=== PATIENT | male | born 1990 | race Caucasian/White ===

== ENCOUNTER 2017-02-20 09:14 | Emergency (ER) | payer OTHER ==
[~2017-02-20] VITALS: Ht 170.2 cm; Wt 78.0 kg
[2017-02-20 09:33] VITALS: Ht 170.2 cm; Wt 78.0 kg
[2017-02-20] MEDS ORDERED: D-ME473S18 PO (10:52)
[2017-02-20] MEDS ORDERED: NAPR-260 PO (10:52)
--- NOTE | 2017-02-20 11:33 | ERD ---
ER Documentation Chief Complaint Date/Time DATE: 02/20/17 TIME: 11:31 Chief Complaint sore throat x 3 days; cough HPI 26-year-old male coming in complaining of sore throat, nasal congestion, headache and dry cough 4 days. Patient has taken Zicam and Sudafed with no alleviation's. Denies sick contacts. Denies fever. Denies chest pain or shortness of breath. ROS All systems reviewed and are negative except as per history of present illness. Medications Home Meds Active Scripts Naproxen* (Naprosyn*) 500 Mg Tablet, 500 MG PO BID Y for PAIN AND/OR INFLAMMATION, #30 TAB Prov:STONE MANCIA PA-C 02/20/17 Dextromethorphan Hb-Promethazine Hcl (Promethazine DM Syrup) 473 Ml Syrup, 5 ML PO Q6H Y for COUGH, #4 OZ Prov:STONE MANCIA PA-C 02/20/17 PMhx/Soc Medical and Surgical Hx: pt denies Medical Hx, pt denies Surgical Hx History of Surgery: No Anesthesia Reaction: No Hx Neurological Disorder: No Hx Respiratory Disorders: No Hx Cardiac Disorders: No Hx Psychiatric Problems: No Hx Miscellaneous Medical Probl: No Hx Alcohol Use: No Hx Substance Use: No Hx Tobacco Use: No Smoking Status: Never smoker Physical Exam Vitals Vital Signs Date Time Temp Pulse Resp B/P Pulse Ox O2 Delivery O2 Flow Rate FiO2 02/20/17 09:33 98.5 88 16 121/85 98 Physical Exam GENERAL: The patient is well-appearing, well-nourished, in no acute distress HEENT: Atraumatic. Conjunctivae are pink. Pupils equal, round, and reactive to light. There is no scleral icterus. Tympanic membranes clear bilaterally. Oropharynx clear. No nystagmus or photophobia. NECK: C-spine is soft and supple. There is no meningismus. There is no cervical lymphadenopathy. No JVD. No bruits. No goiter. CHEST: Clear to auscultation bilaterally. There are no rales, wheezes or rhonchi. HEART: Regular rate and rhythm. No murmurs, clicks, rubs or gallops. No S3 or S4. Procedures/MDM MDM: Patient's physical exam is within normal limits and vital signs are stable. I have low suspicion for bacterial HEENT infection. I have low suspicion for meningitis or sepsis. I have low suspicion for pneumonia. Patient's exam is not concerning and I do not feel that antibiotics are indicated. Patient likely has viral URI and will be treated with symptomatic medication. Patient is given strict ER precautions and recommended to follow- up with primary care within 1-2 days for close evaluation. All questions answered at the time of discharge. Departure Diagnosis: Primary Impression: Sore throat Condition: Stable Referrals: [facility] YOU HAVE RECEIVED A MEDICAL SCREENING EXAM AND THE RESULTS INDICATE THAT YOU DO NOT HAVE A CONDITION THAT REQUIRES URGENT TREATMENT IN THE EMERGENCY DEPARTMENT. FURTHER EVALUATION AND TREATMENT OF YOUR CONDITION CAN WAIT UNTIL YOU ARE SEEN IN YOUR DOCTORS OFFICE WITHIN THE NEXT 1-2 DAYS. IT IS YOUR RESPONSIBILITY TO MAKE AN APPOINTMENT FOR FOLOW-UP CARE. IF YOU HAVE A PRIMARY DOCTOR --you should call your primary doctor and schedule an appointment IF YOU DO NOT HAVE A PRIMARY DOCTOR YOU CAN CALL OUR PHYSICIAN REFERRAL HOTLINE AT IF YOU CAN NOT AFFORD TO SEE A PHYSICIAN YOU CAN CHOSE FROM THE FOLLOWING [facility] [address] [facility] [address] [facility] [address] [facility] [address] [facility] [address] [facility]. [facility]. [address] Additional Instructions: FOLLOW UP WITH YOUR PRIMARY CARE PHYSICIAN TOMORROW.Return to this facility if you are not improving as expected. STONE MANCIA PA-C Feb 20, 2017 11:33
== END 2017-02-20 11:23 | disposition home or self-care (01) ==
LOC: FTE 09:14
DX: J02.9 Acute pharyngitis, unspecified (principal)
CPT/HCPCS: 99283

== ENCOUNTER 2017-04-13 10:30 | Emergency (ER) | payer OTHER ==
[~2017-04-13] VITALS: Wt 77.0 kg
[~2017-04-13 10:30] MED LIST: D-ME473S18 PO; NAPR-260 PO
[2017-04-13] MEDS ORDERED: AZIT250T94 PO (11:54)
[2017-04-13] MEDS ORDERED: UDROBDM PO (11:55)
[2017-04-13] MEDS ORDERED: IBUP-1542 PO (11:57)
[2017-04-13] MEDS ORDERED: CETI10CA PO (11:57)
[2017-04-13] MEDS ORDERED: FLUT9.9S NASAL (11:57)
[2017-04-13 12:08] VITALS: RESP 18
--- NOTE | 2017-04-13 12:11 | ERD ---
ER Documentation Chief Complaint Chief Complaint SORE THROAT X 1 MONTH HPI This is a 26-year-old male presents the emergency department today of sore throat, cough, nasal congestion, runny nose and mucus. She was seen here approximately 1 month ago and whenever he was given was helpful to him. States he felt better for a little bit and symptoms returned approximately 1 week ago. ROS All systems reviewed and are negative except as per history of present illness. Medications Home Meds Active Scripts Ibuprofen* (Motrin*) 600 Mg Tab, 600 MG PO Q6, #30 TAB Prov:NAOMIE VILLEDA PA-C 04/13/17 Cetirizine Hcl* (Zyrtec*) 10 Mg Capsule, 10 MG PO DAILY, #14 TAB.CHEW Prov:NAOMIE VILLEDA PA-C 04/13/17 Fluticasone Propionate (Flonase Allergy Relief) 9.9 Ml [place].susp, 2 SPRAY NASAL DAILY, #1 BOTTLE TO EACH NOSTRIL Prov:NAOMIE VILLEDA PA-C 04/13/17 Guaifenesin-Dextromethorphan* (Robitussin* DM) 100MG/10MG/5ML Syrup, 10 ML PO Q6H for COUGH for 5 Days, ML Prov:NAOMIE VILLEDA PA-C 04/13/17 Azithromycin* (Zithromax*) 250 Mg Tablet, 250 MG PO .ZPACK DIRECTED, #6 TAB TAKE 500 MG (2 TABS) THE FIRST DAY THEN 250 MG (1 TAB) DAYS 2-5 Prov:NAOMIE VILLEDA PA-C 04/13/17 Naproxen* (Naprosyn*) 500 Mg Tablet, 500 MG PO BID Y for PAIN AND/OR INFLAMMATION, #30 TAB Prov:STONE MANCIA PA-C 02/20/17 Dextromethorphan Hb-Promethazine Hcl (Promethazine DM Syrup) 473 Ml Syrup, 5 ML PO Q6H Y for COUGH, #4 OZ Prov:STONE MANCIA PA-C 02/20/17 PMhx/Soc History of Surgery: No Anesthesia Reaction: No Hx Neurological Disorder: No Hx Respiratory Disorders: No Hx Cardiac Disorders: No Hx Psychiatric Problems: No Hx Miscellaneous Medical Probl: No Hx Alcohol Use: No Hx Substance Use: No Hx Tobacco Use: No Physical Exam Vitals Vital Signs Date Time Temp Pulse Resp B/P Pulse Ox O2 Delivery O2 Flow Rate FiO2 04/13/17 12:08 18 98 Room Air 04/13/17 10:32 98.0 77 18 134/90 99 Physical Exam Const: talkative, NAD Head: Atraumatic Eyes: Normal Conjunctiva ENT: Is normal. Nose no drainage. Throat with erythema no exudate no vesicles Neck: Full range of motion..~ No meningismus. Resp: Clear to auscultation bilaterally Cardio: Regular rate and rhythm, no murmurs Abd: Soft, non tender, non distended. Normal bowel sounds Skin: No petechiae or rashes Neur: Awake and alert Psych: Normal Mood and Affect Procedures/MDM This is a 26 -year-old male who presents the emergency department today complaining of signs and symptoms consistent with a URI versus influenza-like symptoms. Afebrile and otherwise well-appearing. Oxygen saturation is 99% I do not feel he requires a chest x-ray at this time. Patient was seen here on February 20, 2017 for similar symptoms. Patient did indicate he felt better for a short period of time but now his symptoms have returned. Was not given antibiotics at that time and was given Naprosyn and promethazine. Given patient 's have returned I will give the patient a prescription for azithromycin that would cover him for strep pharyngitis versus pneumonia versus bronchitis. He was also given a prescription for Robitussin, Flonase and Zyrtec and Motrin. I have low suspicion for , peritonsillar abscess, retropharyngeal abscess, otitis media, PNA, sinusitis, abscess, meningitis, sepsis, or other acute infectious bacterial process. At this time the patient is stable for discharge and outpatient management. They should follow up with their PCP in the next 1-2. He was given a list of community resources they may return to the emergency department sooner if symptoms persist or worsen. Patient understood and agreed with the plan. Departure Diagnosis: Primary Impression: URI (upper respiratory infection) URI type: unspecified URI Qualified Code: J06.9 - Upper respiratory tract infection, unspecified type Condition: Fair Patient Instructions: Self-Care for Sore Throats, Preventing Common Respiratory Infections Referrals: COMMUNITY CLINICS YOU HAVE RECEIVED A MEDICAL SCREENING EXAM AND THE RESULTS INDICATE THAT YOU DO NOT HAVE A CONDITION THAT REQUIRES URGENT TREATMENT IN THE EMERGENCY DEPARTMENT. FURTHER EVALUATION AND TREATMENT OF YOUR CONDITION CAN WAIT UNTIL YOU ARE SEEN IN YOUR DOCTORS OFFICE WITHIN THE NEXT 1-2 DAYS. IT IS YOUR RESPONSIBILITY TO MAKE AN APPOINTMENT FOR FOLOW-UP CARE. IF YOU HAVE A PRIMARY DOCTOR --you should call your primary doctor and schedule an appointment IF YOU DO NOT HAVE A PRIMARY DOCTOR YOU CAN CALL OUR PHYSICIAN REFERRAL HOTLINE AT IF YOU CAN NOT AFFORD TO SEE A PHYSICIAN YOU CAN CHOSE FROM THE FOLLOWING [facility] CLINICS [facility] [address] [facility]. [facility] [address] [facility] [address] [facility]. [facility] [address] [facility]. [facility] [address] [facility] [facility] [address] Additional Instructions: Call your primary care doctor TOMORROW for an appointment during the next 1-2 days.See the doctor sooner or return here if your condition worsens before your appointment time. Take Antibiotics as prescribed. Take Naprosyn or Tylenol or Motrin for pain. Stay well hydrated with plenty of clear fluids. Take Robitussin for cough. Take Flonase and Zyrtec for nasal congestion. NAOMIE VILLEDA PA-C Apr 13, 2017 12:11
--- NOTE | 2017-04-13 12:11 | ERD ---
ER Documentation Chief Complaint Chief Complaint SORE THROAT X 1 MONTH HPI This is a 26-year-old male presents the emergency department today of sore throat, cough, nasal congestion, runny nose and mucus. She was seen here approximately 1 month ago and whenever he was given was helpful to him. States he felt better for a little bit and symptoms returned approximately 1 week ago. ROS All systems reviewed and are negative except as per history of present illness. Medications Home Meds Active Scripts Ibuprofen* (Motrin*) 600 Mg Tab, 600 MG PO Q6, #30 TAB Prov:NAOMIE VILLEDA PA-C 04/13/17 Cetirizine Hcl* (Zyrtec*) 10 Mg Capsule, 10 MG PO DAILY, #14 TAB.CHEW Prov:NAOMIE VILLEDA PA-C 04/13/17 Fluticasone Propionate (Flonase Allergy Relief) 9.9 Ml [place].susp, 2 SPRAY NASAL DAILY, #1 BOTTLE TO EACH NOSTRIL Prov:NAOMIE VILLEDA PA-C 04/13/17 Guaifenesin-Dextromethorphan* (Robitussin* DM) 100MG/10MG/5ML Syrup, 10 ML PO Q6H for COUGH for 5 Days, ML Prov:NAOMIE VILLEDA PA-C 04/13/17 Azithromycin* (Zithromax*) 250 Mg Tablet, 250 MG PO .ZPACK DIRECTED, #6 TAB TAKE 500 MG (2 TABS) THE FIRST DAY THEN 250 MG (1 TAB) DAYS 2-5 Prov:NAOMIE VILLEDA PA-C 04/13/17 Naproxen* (Naprosyn*) 500 Mg Tablet, 500 MG PO BID Y for PAIN AND/OR INFLAMMATION, #30 TAB Prov:STONE MANCIA PA-C 02/20/17 Dextromethorphan Hb-Promethazine Hcl (Promethazine DM Syrup) 473 Ml Syrup, 5 ML PO Q6H Y for COUGH, #4 OZ Prov:STONE MANCIA PA-C 02/20/17 PMhx/Soc History of Surgery: No Anesthesia Reaction: No Hx Neurological Disorder: No Hx Respiratory Disorders: No Hx Cardiac Disorders: No Hx Psychiatric Problems: No Hx Miscellaneous Medical Probl: No Hx Alcohol Use: No Hx Substance Use: No Hx Tobacco Use: No Physical Exam Vitals Vital Signs Date Time Temp Pulse Resp B/P Pulse Ox O2 Delivery O2 Flow Rate FiO2 04/13/17 12:08 18 98 Room Air 04/13/17 10:32 98.0 77 18 134/90 99 Physical Exam Const: talkative, NAD Head: Atraumatic Eyes: Normal Conjunctiva ENT: Is normal. Nose no drainage. Throat with erythema no exudate no vesicles Neck: Full range of motion..~ No meningismus. Resp: Clear to auscultation bilaterally Cardio: Regular rate and rhythm, no murmurs Abd: Soft, non tender, non distended. Normal bowel sounds Skin: No petechiae or rashes Neur: Awake and alert Psych: Normal Mood and Affect Procedures/MDM This is a 26 -year-old male who presents the emergency department today complaining of signs and symptoms consistent with a URI versus influenza-like symptoms. Afebrile and otherwise well-appearing. Oxygen saturation is 99% I do not feel he requires a chest x-ray at this time. Patient was seen here on February 20, 2017 for similar symptoms. Patient did indicate he felt better for a short period of time but now his symptoms have returned. Was not given antibiotics at that time and was given Naprosyn and promethazine. Given patient 's have returned I will give the patient a prescription for azithromycin that would cover him for strep pharyngitis versus pneumonia versus bronchitis. He was also given a prescription for Robitussin, Flonase and Zyrtec and Motrin. I have low suspicion for , peritonsillar abscess, retropharyngeal abscess, otitis media, PNA, sinusitis, abscess, meningitis, sepsis, or other acute infectious bacterial process. At this time the patient is stable for discharge and outpatient management. They should follow up with their PCP in the next 1-2. He was given a list of community resources they may return to the emergency department sooner if symptoms persist or worsen. Patient understood and agreed with the plan. Departure Diagnosis: Primary Impression: URI (upper respiratory infection) URI type: unspecified URI Qualified Code: J06.9 - Upper respiratory tract infection, unspecified type Condition: Fair Patient Instructions: Self-Care for Sore Throats, Preventing Common Respiratory Infections Referrals: COMMUNITY CLINICS YOU HAVE RECEIVED A MEDICAL SCREENING EXAM AND THE RESULTS INDICATE THAT YOU DO NOT HAVE A CONDITION THAT REQUIRES URGENT TREATMENT IN THE EMERGENCY DEPARTMENT. FURTHER EVALUATION AND TREATMENT OF YOUR CONDITION CAN WAIT UNTIL YOU ARE SEEN IN YOUR DOCTORS OFFICE WITHIN THE NEXT 1-2 DAYS. IT IS YOUR RESPONSIBILITY TO MAKE AN APPOINTMENT FOR FOLOW-UP CARE. IF YOU HAVE A PRIMARY DOCTOR --you should call your primary doctor and schedule an appointment IF YOU DO NOT HAVE A PRIMARY DOCTOR YOU CAN CALL OUR PHYSICIAN REFERRAL HOTLINE AT IF YOU CAN NOT AFFORD TO SEE A PHYSICIAN YOU CAN CHOSE FROM THE FOLLOWING [facility] CLINICS [facility] [address] [facility]. [facility] [address] [facility] [address] [facility] [address] [facility]. [facility] [address] [facility]. [facility] [address] Additional Instructions: Call your primary care doctor TOMORROW for an appointment during the next 1-2 days.See the doctor sooner or return here if your condition worsens before your appointment time. Take Antibiotics as prescribed. Take Naprosyn or Tylenol or Motrin for pain. Stay well hydrated with plenty of clear fluids. Take Robitussin for cough. Take Flonase and Zyrtec for nasal congestion. NAOMIE VILLEDA PA-C Apr 13, 2017 12:11
--- NOTE | 2017-04-13 12:11 | ERD ---
ER Documentation Chief Complaint Chief Complaint SORE THROAT X 1 MONTH HPI This is a 26-year-old male presents the emergency department today of sore throat, cough, nasal congestion, runny nose and mucus. She was seen here approximately 1 month ago and whenever he was given was helpful to him. States he felt better for a little bit and symptoms returned approximately 1 week ago. ROS All systems reviewed and are negative except as per history of present illness. Medications Home Meds Active Scripts Ibuprofen* (Motrin*) 600 Mg Tab, 600 MG PO Q6, #30 TAB Prov:NAOMIE VILLEDA PA-C 04/13/17 Cetirizine Hcl* (Zyrtec*) 10 Mg Capsule, 10 MG PO DAILY, #14 TAB.CHEW Prov:NAOMIE VILLEDA PA-C 04/13/17 Fluticasone Propionate (Flonase Allergy Relief) 9.9 Ml [place].susp, 2 SPRAY NASAL DAILY, #1 BOTTLE TO EACH NOSTRIL Prov:NAOMIE VILLEDA PA-C 04/13/17 Guaifenesin-Dextromethorphan* (Robitussin* DM) 100MG/10MG/5ML Syrup, 10 ML PO Q6H for COUGH for 5 Days, ML Prov:NAOMIE VILLEDA PA-C 04/13/17 Azithromycin* (Zithromax*) 250 Mg Tablet, 250 MG PO .ZPACK DIRECTED, #6 TAB TAKE 500 MG (2 TABS) THE FIRST DAY THEN 250 MG (1 TAB) DAYS 2-5 Prov:NAOMIE VILLEDA PA-C 04/13/17 Naproxen* (Naprosyn*) 500 Mg Tablet, 500 MG PO BID Y for PAIN AND/OR INFLAMMATION, #30 TAB Prov:STONE MANCIA PA-C 02/20/17 Dextromethorphan Hb-Promethazine Hcl (Promethazine DM Syrup) 473 Ml Syrup, 5 ML PO Q6H Y for COUGH, #4 OZ Prov:STONE MANCIA PA-C 02/20/17 PMhx/Soc History of Surgery: No Anesthesia Reaction: No Hx Neurological Disorder: No Hx Respiratory Disorders: No Hx Cardiac Disorders: No Hx Psychiatric Problems: No Hx Miscellaneous Medical Probl: No Hx Alcohol Use: No Hx Substance Use: No Hx Tobacco Use: No Physical Exam Vitals Vital Signs Date Time Temp Pulse Resp B/P Pulse Ox O2 Delivery O2 Flow Rate FiO2 04/13/17 12:08 18 98 Room Air 04/13/17 10:32 98.0 77 18 134/90 99 Physical Exam Const: talkative, NAD Head: Atraumatic Eyes: Normal Conjunctiva ENT: Is normal. Nose no drainage. Throat with erythema no exudate no vesicles Neck: Full range of motion..~ No meningismus. Resp: Clear to auscultation bilaterally Cardio: Regular rate and rhythm, no murmurs Abd: Soft, non tender, non distended. Normal bowel sounds Skin: No petechiae or rashes Neur: Awake and alert Psych: Normal Mood and Affect Procedures/MDM This is a 26 -year-old male who presents the emergency department today complaining of signs and symptoms consistent with a URI versus influenza-like symptoms. Afebrile and otherwise well-appearing. Oxygen saturation is 99% I do not feel he requires a chest x-ray at this time. Patient was seen here on February 20, 2017 for similar symptoms. Patient did indicate he felt better for a short period of time but now his symptoms have returned. Was not given antibiotics at that time and was given Naprosyn and promethazine. Given patient 's have returned I will give the patient a prescription for azithromycin that would cover him for strep pharyngitis versus pneumonia versus bronchitis. He was also given a prescription for Robitussin, Flonase and Zyrtec and Motrin. I have low suspicion for , peritonsillar abscess, retropharyngeal abscess, otitis media, PNA, sinusitis, abscess, meningitis, sepsis, or other acute infectious bacterial process. At this time the patient is stable for discharge and outpatient management. They should follow up with their PCP in the next 1-2. He was given a list of community resources they may return to the emergency department sooner if symptoms persist or worsen. Patient understood and agreed with the plan. Departure Diagnosis: Primary Impression: URI (upper respiratory infection) URI type: unspecified URI Qualified Code: J06.9 - Upper respiratory tract infection, unspecified type Condition: Fair Patient Instructions: Self-Care for Sore Throats, Preventing Common Respiratory Infections Referrals: COMMUNITY CLINICS YOU HAVE RECEIVED A MEDICAL SCREENING EXAM AND THE RESULTS INDICATE THAT YOU DO NOT HAVE A CONDITION THAT REQUIRES URGENT TREATMENT IN THE EMERGENCY DEPARTMENT. FURTHER EVALUATION AND TREATMENT OF YOUR CONDITION CAN WAIT UNTIL YOU ARE SEEN IN YOUR DOCTORS OFFICE WITHIN THE NEXT 1-2 DAYS. IT IS YOUR RESPONSIBILITY TO MAKE AN APPOINTMENT FOR FOLOW-UP CARE. IF YOU HAVE A PRIMARY DOCTOR --you should call your primary doctor and schedule an appointment IF YOU DO NOT HAVE A PRIMARY DOCTOR YOU CAN CALL OUR PHYSICIAN REFERRAL HOTLINE AT IF YOU CAN NOT AFFORD TO SEE A PHYSICIAN YOU CAN CHOSE FROM THE FOLLOWING [facility] CLINICS [facility] [address] [facility]. [facility] [address] [facility] [address] [facility] [address] [facility]. [facility] [address] [facility]. [facility] [address] Additional Instructions: Call your primary care doctor TOMORROW for an appointment during the next 1-2 days.See the doctor sooner or return here if your condition worsens before your appointment time. Take Antibiotics as prescribed. Take Naprosyn or Tylenol or Motrin for pain. Stay well hydrated with plenty of clear fluids. Take Robitussin for cough. Take Flonase and Zyrtec for nasal congestion. NAOMIE VILLEDA PA-C Apr 13, 2017 12:11
== END 2017-04-13 12:10 | disposition home or self-care (01) ==
LOC: FTE 10:30
DX: J06.9 Acute upper respiratory infection, unspecified (principal)
CPT/HCPCS: 99283

== ENCOUNTER 2017-07-18 05:04 | Emergency (ER) | END 2017-07-18 09:50 | disposition home or self-care (01) ==

== ENCOUNTER 2017-10-30 12:57 | Emergency (ER) | END 2017-10-30 14:57 | disposition home or self-care (01) ==

== ENCOUNTER 2018-01-10 20:50 | Emergency (ER) | END 2018-01-10 22:59 | disposition home or self-care (01) ==

== ENCOUNTER 2018-04-23 20:12 | Emergency (ER) | END 2018-04-23 21:16 | disposition home or self-care (01) ==